=== PATIENT | female | born 1975 | race Caucasian/White ===

== ENCOUNTER 2016-09-14 18:36 | Emergency (ER) | payer OTHER ==
[~2016-09-14] VITALS: Ht 149.9 cm; Wt 70.0 kg
[~2016-09-14 18:36] MED LIST: HYDR-3533 PO; PERC5TAB12 PO; ZOVI800T13 PO
[2016-09-14 18:58] VITALS: BP 121/75; PULSE 86; RESP 20; TEMP 98.2; O2SAT 100
--- NOTE | 2016-09-14 19:37 | PD ---
HPI Chief Complaint: Skin Problem Time Seen by Provider: 19:37 Travel History International Travel<30 days: No Contact w/Intl Traveler<30days: No Traveled to known affect area: No History of Present Illness HPI 41-year-old female presents to the emergency Department with complaint of a rash to bilateral antecubital areas since . Reports rash is itchy. The rash started on her face and then started on her bilateral arms. She says it is now coming to her chest and to bilateral armpit areas. Denies airway edema, shortness of breath, wheezing, stridor. Denies new detergents, lotions, soaps, medications, foods, and environmental exposure. There is a cat, that is not hers, in her house and she has been petting it. She does not know she is allergic to cats. She has taken Benadryl with some relief of itching. Last took Benadryl last night. Has also used calamine lotion with no relief of itching. Denies fever, chills, nausea, vomiting. Denies chest pain, shortness of breath, abdominal pain. History of allergic asthma and eczema. Symptoms are not consistent with eczema per the patient. Allergies to aspirin, Imitrex, penicillin, vancomycin. No other modifying factors or associated signs and symptoms. PFSH Past Medical History Asthma: Yes Anxiety: Yes Depression: Yes Heart Rhythm Problems: Yes (HEART MURMUR) Cardiac Catheterization: No Cardiovascular Problems: Yes High Cholesterol: Yes Congestive Heart Failure: No Diabetes: Yes (BORDERLINE) Patient Takes Glucophage: No Diminished Hearing: No Neurologic: Yes (HYDROCEPHALUS) Reproductive: Yes (ENDOMETREOSIS) Migraines: Yes Triglycerides - High: Yes Tetanus Vaccination: > 5 Years Influenza Vaccination: Yes ?: Not LMP: YEAR AGO Menopausal: Yes : 1 Miscarriage: 1 Past Surgical History Appendectomy: Yes Cholecystectomy: Yes Coronary Artery Bypass Graft: No Eye Surgery: Yes (BILAT FOR ASTIGMATISM) Neurologic Surgery: Yes (SHUNT PLACEMENT FOR HYDROCEPHALOUS WITH MULT REVISIONS ) Other Surgery: Yes (SHUNT REVISION) Family History Family Myocardial Infarction: Yes Social History Alcohol Use: No Tobacco Use: No Substance Use: No Allergies-Medications (Allergen,Severity, Reaction): Coded Allergies: Aspirin (Verified Allergy, Severe, Throat closes, 09/14/16) Penicillin (Verified Allergy, Severe, Itching/rash, 09/14/16) Vancomycin (Verified Allergy, Severe, Throat swelling, 09/14/16) Imitrex (Verified Adverse Reaction, Severe, Heart races, 09/14/16) Reported Meds & Prescriptions Reported Meds & Active Scripts Active Deltasone (Prednisone) 20 Mg Tab 40 Mg PO DAILY 4 Days start 09/15/2016 Lortab 5 mg/325 mg (Hydrocodone/Acetaminophen 5 mg/325 mg) 1 Tab 1 Tab PO Q6H PRN Zovirax (Acyclovir) 800 Mg Tab 800 Mg PO 5 TIMES A DAY 7 Days Percocet 5-325 mg (Oxycodone/Acetaminophen) Oxycodone 5/325 Acetaminophen Tab 1 Tab PO Q4H Review of Systems Except as stated in HPI: all other systems reviewed are Neg Physical Exam Narrative GENERAL: Well-nourished, well-developed patient, in no acute distress; afebrile , nontoxic-appearing SKIN: Warm and dry. Area of erythemic maculopapular rash, with small vesicles to area, to bilateral antecubital areas; no rash noted to face, chest, armpit areas. Bilateral upper extremities are supple and non-tense with 2+ pedal pulses and sensory intact. HEAD: Atraumatic. Normocephalic. EYES: Pupils equal and round at 3 mm with brisk reaction. No scleral icterus. No injection or drainage. PERRLA. ENT: Mucosa pink and moist. No erythema or exudates. No uvular edema. No uvular , palatal, or tonsillar deviation. Airway patent. EARS: Bilateral pinnae and external canals appear within normal limits. Bilateral tympanic membranes without erythema, dullness or perforation. NECK: Trachea midline. No lymphadenopathy. CARDIOVASCULAR: Regular rate and rhythm. No murmur appreciated. RESPIRATORY: No accessory muscle use. Clear to auscultation. Breath sounds equal bilaterally. GASTROINTESTINAL: Abdomen soft, non-tender, nondistended. Hepatic and splenic margins not palpable. Bowel sounds are active 4 quadrants. MUSCULOSKELETAL: No obvious deformities. No clubbing. No cyanosis. No edema. NEUROLOGICAL: Awake and alert. Oriented 3. No obvious cranial nerve deficits. Motor grossly within normal limits. Normal speech. Moves all extremities. 5/5 strength to all extremities. PSYCHIATRIC: Appropriate mood and affect; insight and judgment normal. Data Data Last Documented VS Vital Signs Date Time Temp Pulse Resp B/P Pulse Ox O2 Delivery O2 Flow Rate FiO2 09/14/16 18:58 98.2 86 20 121/75 100 Orders Diphenhydramine (Benadryl) (09/14/16 19:45) Prednisone (Deltasone) (09/14/16 19:45) MDM Medical Decision Making Medical Screen Exam Complete: Yes Emergency Medical Condition: Yes Medical Record Reviewed: Yes Differential Diagnosis Contact dermatitis, nonspecific rash, allergic reaction, hives Narrative Course 41-year-old female physical exam consistent with a nonspecific skin eruption to bilateral antecubital areas. Rash is itchy. Denies new exposures, except possibly to a cat. Patient is in no acute distress and oxygen saturation is 100 % on room air. No retractions tachypnea. Denies shortness of breath, airway edema, difficulty breathing. Benadryl and Deltasone administered in the ER. Insert a patient to follow up with dermatology as needed. Deltasone Prescribed for Home. Instructed patient to take Benadryl as instructed next needed for itch/rash. Patient verbalized understanding and agreement of treatment plan. Patient is medically cleared and stable for discharge. Discussed reasons to return to the emergency department. Instructed patient to follow up with primary care provider. Patient agrees with treatment plan. The patients vital signs are stable and the patient is stable for outpatient follow-up and treatment. Patient discharged home, stable and in no acute distress. Diagnosis Primary Impression: Rash and nonspecific skin eruption Referrals: [facility] Primary Care Physician Patient Instructions: Acute Rash (ED), General Instructions Additional Instructions: Take prednisone as prescribed [id number] topicals to reduce itch Benadryl as directed and as needed to reduce itch Follow-up with your primary care provider Follow-up with dermatology as needed Return to the emergency department immediately Med/Other Pt SpecificInfo: Prescription(s) given Scripts Prednisone (Deltasone)20 Mg Tab40 Mg PO DAILY 4 Days Ref 0 start 09/15/2016 Prov:Merly Salmon 09/14/16 Disposition: 01 DISCHARGE HOME Condition: Stable Merly Salmon Sep 14, 2016 19:37
[2016-09-14] MEDS ORDERED: PRED-503 PO (19:41)
[2016-09-14] MEDS ORDERED: diphenhydrAMINE HCL 50 MG CAP PO ONE (19:45)
[2016-09-14] MEDS ORDERED: predniSONE 20 MG TAB PO ONE (19:45)
== END 2016-09-14 19:50 | disposition home or self-care (01) ==
LOC: PHEFT 18:36
DX: R21 Rash and other nonspecific skin eruption (principal)
CPT/HCPCS: 99282; J7512; Q0163

== ENCOUNTER 2017-01-12 20:18 | Emergency (ER) | payer OTHER ==
[~2017-01-12] VITALS: Ht 149.9 cm; Wt 69.0 kg
[~2017-01-12 20:18] MED LIST changes: +PRED-503 PO
[2017-01-12 20:24] VITALS: BP 132/72; PULSE 77; RESP 20; TEMP 98.2; O2SAT 100
[2017-01-12] MEDS ORDERED: SODIUM CHLOR 0.9% 1000 ML INJ 1,000 ML IV SCH (20:58)
[2017-01-12 21:00] VITALS: BP 154/74; PULSE 69; RESP 18; O2SAT 100
[2017-01-12] MEDS ORDERED: MORPHINE SULFATE 4 MG/ML INJ IV PUSH ONE (21:00)
[2017-01-12] MEDS ORDERED: SODIUM CHLORIDE 0.9% FLUSH 10 ML FLUSH IV FLUSH PRN (21:00)
[2017-01-12] MEDS ORDERED: ONDANSETRON HCL 4 MG/2 ML VIAL IVP ONE (21:00)
--- NOTE | 2017-01-12 21:20 | PD ---
HPI . Abdominal pain Chief Complaint: Abdominal Pain Time Seen by Provider: 20:53 Travel History International Travel<30 days: No Contact w/Intl Traveler<30days: No Traveled to known affect area: No History of Present Illness HPI Patient presents with a 3 day history of upper abdominal pain associated with nausea, vomiting and loose stools. She describes the pain as sharp, stabbing and burning. She states that her pain is 9/10. Pain is possibly exacerbated by food. She has actually continued to be quite vigorously. She has had sausage and eggs followed by santinoa today. She denies any fever. She denies any urinary tract symptoms. She denies any previous similar history. She states that she does not use alcohol. Past surgical history is significant for previous appendectomy and cholecystectomy. PFSH Past Medical History Asthma: Yes Anxiety: Yes Depression: Yes Heart Rhythm Problems: Yes (HEART MURMUR) Cardiac Catheterization: No Cardiovascular Problems: Yes High Cholesterol: Yes Congestive Heart Failure: No Diabetes: Yes (BORDERLINE) Patient Takes Glucophage: No Diminished Hearing: No Neurologic: Yes (HYDROCEPHALUS) Reproductive: Yes (ENDOMETREOSIS) Migraines: Yes Triglycerides - High: Yes Tetanus Vaccination: > 5 Years Influenza Vaccination: Yes ?: Unknown LMP: 2011 Menopausal: Yes : 1 Miscarriage: 1 Past Surgical History Appendectomy: Yes Cholecystectomy: Yes Coronary Artery Bypass Graft: No Eye Surgery: Yes (BILAT FOR ASTIGMATISM) Neurologic Surgery: Yes (SHUNT PLACEMENT FOR HYDROCEPHALOUS WITH MULT REVISIONS ) Other Surgery: Yes (SHUNT REVISION) Family History Family Myocardial Infarction: Yes Social History Alcohol Use: No Tobacco Use: No Substance Use: No Allergies-Medications (Allergen,Severity, Reaction): Coded Allergies: Aspirin (Verified Allergy, Severe, Throat closes, 01/12/17) Penicillin (Verified Allergy, Severe, Itching/rash, 01/12/17) Vancomycin (Verified Allergy, Severe, Throat swelling, 01/12/17) Imitrex (Verified Adverse Reaction, Severe, Heart races, 01/12/17) Reported Meds & Prescriptions Reported Meds & Active Scripts Active Phenergan (Promethazine HCl) 25 Mg Tab 25 Mg PO Q6H PRN Prilosec (Omeprazole) 20 Mg Cap 20 Mg PO DAILY Review of Systems Except as stated in HPI: all other systems reviewed are Neg General / Constitutional: No: Fever, Chills Gastrointestinal: Positive: Nausea, Vomiting, Diarrhea, Abdominal Pain Genitourinary: No: Urgency, Frequency, Dysuria Physical Exam Narrative GENERAL: Whining in apparent pain. SKIN: Warm and dry. HEAD: Atraumatic. Normocephalic. EYES: Pupils equal and round. Sclera are anicteric. ENT: No nasal bleeding or discharge. Mucous membranes pink and moist. NECK: Trachea midline. Neck is supple. CARDIOVASCULAR: Regular rate and rhythm. Heart sounds are normal. RESPIRATORY: No accessory muscle use. Lungs are clear with full air movement throughout. GASTROINTESTINAL: Abdomen soft. Upper abdominal tenderness. Nondistended. Bowel sounds positive. MUSCULOSKELETAL: No obvious deformities. No edema. NEUROLOGICAL: Awake and alert. No obvious cranial nerve deficits. Motor grossly within normal limits. Normal speech. PSYCHIATRIC: Appropriate mood and affect; insight and judgment normal. Data Data Last Documented VS Vital Signs Date Time Temp Pulse Resp B/P Pulse Ox O2 Delivery O2 Flow Rate FiO2 01/12/17 23:03 18 01/12/17 23:00 78 106/47 99 Room Air 01/12/17 20:24 98.2 Orders Complete Blood Count With Diff (01/12/17 20:58) Comprehensive Metabolic Panel (01/12/17 20:58) Lipase (01/12/17 20:58) Urinalysis - C+S If Indicated (01/12/17 20:58) Ct Abd/Pel W Iv Contrast(Rout) (01/12/17 20:58) Iv Access Insert/Monitor (01/12/17 20:58) Morphine Inj (Morphine Inj) (01/12/17 21:00) Ondansetron Inj (Zofran Inj) (01/12/17 21:00) Sodium Chlor 0.9% 1000 Ml Inj (Ns 1000 M (01/12/17 20:58) Sodium Chloride 0.9% Flush (Ns Flush) (01/12/17 21:00) Electrocardiogram (01/12/17 20:58) Ed Urine Pregnancytest Poc (01/12/17 20:58) Urine Culture (01/12/17 22:25) Iohexol 350 Inj (Omnipaque 350 Inj) (01/12/17 22:55) Labs Laboratory Tests Test 01/12/17 01/12/17 22:00 22:25 White Blood Count 14.6 TH/MM3 Red Blood Count 4.93 MIL/MM3 Hemoglobin 14.3 GM/DL Hematocrit 42.4 % Mean Corpuscular Volume 85.9 FL Mean Corpuscular Hemoglobin 29.0 PG Mean Corpuscular Hemoglobin 33.7 % Concent Red Cell Distribution Width 12.0 % Platelet Count 299 TH/MM3 Mean Platelet Volume 9.6 FL Neutrophils (%) (Auto) 84.6 % Lymphocytes (%) (Auto) 11.0 % Monocytes (%) (Auto) 2.9 % Eosinophils (%) (Auto) 0.8 % Basophils (%) (Auto) 0.7 % Neutrophils # (Auto) 12.4 TH/MM3 Lymphocytes # (Auto) 1.6 TH/MM3 Monocytes # (Auto) 0.4 TH/MM3 Eosinophils # (Auto) 0.1 TH/MM3 Basophils # (Auto) 0.1 TH/MM3 CBC Comment DIFF FINAL Differential Comment Sodium Level 138 MEQ/L Potassium Level 3.9 MEQ/L Chloride Level 106 MEQ/L Carbon Dioxide Level 23.2 MEQ/L Anion Gap 9 MEQ/L Blood Urea Nitrogen 15 MG/DL Creatinine 0.60 MG/DL Estimat Glomerular Filtration 110 ML/MIN Rate Random Glucose 116 MG/DL Calcium Level 9.0 MG/DL Total Bilirubin 0.6 MG/DL Aspartate Amino Transf 10 U/L (AST/SGOT) Alanine Aminotransferase 29 U/L (ALT/SGPT) Alkaline Phosphatase 132 U/L Total Protein 8.2 GM/DL Albumin 3.6 GM/DL Lipase 72 U/L Urine Collection Type Urine Color YELLOW Urine Turbidity CLEAR Urine pH 6.0 Urine Specific [place] 1.026 Urine Protein TRACE mg/dL Urine Glucose (UA) NEG mg/dL Urine Ketones NEG mg/dL Urine Occult Blood NEG Urine Nitrite NEG Urine Bilirubin NEG Urine Leukocyte Esterase NEG Urine RBC 0-3 /hpf Urine WBC 0-2 /hpf Urine Squamous Epithelial 6-8 /hpf Cells Urine Bacteria MOD /hpf Urine Mucus MOD /lpf Microscopic Urinalysis Comment CULTURE INDICATED MDM Medical Decision Making Medical Screen Exam Complete: Yes Emergency Medical Condition: Yes Interpretation(s) EKG shows a normal sinus rhythm with no acute ischemic change. Differential Diagnosis Differential diagnosis of abdominal pain includes but is not limited to gastritis, pancreatitis, hepatitis, gastroenteritis, gallbladder disease, constipation, urinary retention, UTI, peptic ulcer disease, diverticulitis or appendicitis Narrative Course Patient presents with a three-day history of upper abdominal pain as stated with occasional emesis and loose stools. She has continued to eat. CBC & BMP Diagram 01/12/17 22:00 LFTs are unremarkable. Lipase is 72. UA is negative for nitrites and leukocyte esterase. CT>> No evidence of acute abdominal or pelvic process. No masses are identified. No etiology for her abdominal pain and vomiting has been found. Diagnosis Primary Impression: Abdominal pain Qualified Code: R10.13 - Epigastric pain Additional Impression: Vomiting Qualified Code: R11.2 - Non-intractable vomiting with nausea, unspecified vomiting type Patient Instructions: Abdominal Pain (ED), Acute Nausea and Vomiting (DC), General Instructions, Narcotic given in the ED Med/Other Pt SpecificInfo: Prescription(s) given Scripts Promethazine (Phenergan)25 Mg Tab25 Mg PO Q6H PRN (Nausea/Vomiting) #10 TAB Ref 0 Prov:Kimberly Crocker MD 01/12/17 Omeprazole (Prilosec)20 Mg Cap20 Mg PO DAILY #30 CAP Ref 0 Prov:Kimberly Crocker MD 01/12/17 Disposition: 01 DISCHARGE HOME Condition: Stable Kimberly Crocker MD January 12, 2017 21:20
[2017-01-12 22:00] VITALS: BP 107/54; PULSE 74; RESP 18; O2SAT 98
[2017-01-12 22:09] LABS: AUTOMATED NEUTROPHIL # 12.4 TH/MM3 (1.8-7.7); BASOPHIL # 0.1 TH/MM3 (0-0.2); BASOPHIL % 0.7 % (0.0-2.0); EOSINOPHIL # 0.1 TH/MM3 (0-0.4); EOSINOPHIL % 0.8 % (0.0-4.0); HEMATOCRIT 42.4 % (35.0-46.0); LYMPHOCYTE # 1.6 TH/MM3 (1.0-4.8); MEAN CELL VOLUME 85.9 FL (80.0-100.0); MEAN CORPUSCULAR HGB CONC 33.7 % (32.0-36.0); MONO % 2.9 % (0.0-8.0); NEUT % 84.6 % (16.0-70.0); PLATELET COUNT 299 TH/MM3 (150-450); RED BLOOD COUNT 4.93 MIL/MM3 (4.00-5.30); WHITE BLOOD COUNT 14.6 TH/MM3 (4.0-11.0)
[2017-01-12 22:11] LABS: HEMO FLAGS DIFF FINAL
[2017-01-12 22:22] LABS: CHLORIDE 106 MEQ/L (98-107); POTASSIUM 3.9 MEQ/L (3.5-5.1); SODIUM (NA) 138 MEQ/L (136-145)
[2017-01-12 22:26] LABS: ANION GAP 9 MEQ/L (5-15); BICARBONATE 23.2 MEQ/L (21.0-32.0)
[2017-01-12 22:27] LABS: BLOOD UREA NITROGEN 15 MG/DL (7-18)
[2017-01-12 22:29] LABS: ALT (GPT) 29 U/L (10-53); AST (GOT) 10 U/L (15-37); GLOMERULAR FILTRATION RATE 110 ML/MIN (>89)
[2017-01-12 22:31] LABS: TOTAL BILIRUBIN ADULT 0.6 MG/DL (0.2-1.0)
[2017-01-12 22:32] LABS: ALKALINE PHOSPHATASE 132 U/L (45-117)
[2017-01-12 22:42] LABS: BLOOD, URINE NEG (NEG); GLUCOSE,URINE NEG (NEG); KETONE, URINE NEG (NEG); NITRITE,URINE NEG (NEG)
[2017-01-12 22:47] LABS: URINE COLOR YELLOW (YELLW/STRAW)
[2017-01-12 22:48] LABS: MUCUS URINE MOD /lpf (OCC)
[2017-01-12 22:51] LABS: BACTERIA, URINE MOD /hpf; WBC, URINE 0-2 /hpf (0-5)
[2017-01-12 22:52] LABS: COMMENT (UR) CULTURE INDICATED; CULTURE IF INDICATED CULTURE INDICATED; RBC, URINE 0-3 /hpf (0-3)
[2017-01-12] MEDS ORDERED: IOHEXOL 350 MG/ML 10 ML VIAL (for RAD DIAG) IV ONE (22:55)
[2017-01-12 23:00] VITALS: BP 106/47; PULSE 78; RESP 18; O2SAT 99
[2017-01-12 23:03] VITALS: RESP 18
[2017-01-12] MEDS ORDERED: PRIL20CA9 PO (23:30)
[2017-01-12] MEDS ORDERED: PROM25TA5 PO (23:30)
--- NOTE | 2017-01-13 00:07 | RADHPO ---
EXAM DATE/TIME: 01/12/2017 22:35 [facility] COMPARISON: No previous studies available for comparison. INDICATIONS : Epigastric pain. Nausea, vomiting and diarrhea. IV CONTRAST: 100 cc Omnipaque 350 (iohexol) IV ORAL CONTRAST: No oral contrast ingested. RADIATION DOSE: 9.5 CTDIvol (mGy) MEDICAL HISTORY : None SURGICAL HISTORY : Appendectomy. Cholecystectomy. ENCOUNTER: Initial ACUITY: 3 days PAIN SCALE: 8/10 LOCATION: Bilateral upper quadrant TECHNIQUE: Volumetric scanning of the abdomen and pelvis was performed. Using automated exposure control and ad justment of the mA and/or kV according to patient size, radiation dose was kept as low as reasonably achievable to obtain optimal diagnostic quality images. FINDINGS: Examination of the lung bases demonstrates no abnormality. No pleural fluid is identified. No pulmona ry nodules are present. The liver and spleen are normal in size and no focal defects are identified. The gallbladder is absent. The pancreas demonstrates normal contour without evidence of mass or ducta l dilatation. The adrenal glands and kidneys appear normal bilaterally. No hydronephrosis or mass les ions are identified. There is a single simple cyst in the left kidney measuring 15 mm in the midpole . A shunt catheter is entering the right upper quadrant with a small amount of free fluid in the abdo men. Examination of the pelvis demonstrates no evidence of free fluid or pelvic mass. No abnormally enlarg ed inguinal or retroperitoneal lymph nodes are present. The bladder is unremarkable. CONCLUSION: 1. No evidence of acute abdominal or pelvic process. No masses are identified. Darius Ocampo MD on January 13, 2017 at 0:03 Board Certified Radiologist. This report was verified electronically.
[2017-01-13 00:29] VITALS: BP 106/54
--- NOTE | 2017-01-13 08:38 | EKG ---
Date Performed: 01/12/2017 Time Performed: 22:12:54 PTAGE: 41 years EKG: Sinus rhythm Poor R wave progression - probable normal variant Borderline ECG PREVIOUS TRACING : 03/31/2014 18.15 DOCTOR: Nilton Noyola Interpretating Date/Time 01/13/2017 08:37:41
== END 2017-01-13 00:34 | disposition home or self-care (01) ==
LOC: PHED 20:18
DX: R10.13 Epigastric pain (principal); R11.2 Nausea with vomiting, unspecified; J45.909 Unspecified asthma, uncomplicated; F41.8 Other specified anxiety disorders; E78.2 Mixed hyperlipidemia; Z90.49 Acquired absence of other specified parts of digestive tract
CPT/HCPCS: 74177; 80053; 81001; 83690; 84703; 85025; 87086; 93005; 96361; 96374; 96375; 99284; J2270; J2405; J7030; Q9967

== ENCOUNTER 2017-05-07 07:31 | Emergency (ER) | payer OTHER ==
[~2017-05-07] VITALS: Ht 154.9 cm; Wt 65.0 kg
[~2017-05-07 07:31] MED LIST changes: -HYDR-3533 PO; -PERC5TAB12 PO; -PRED-503 PO; +PRIL20CA9 PO; +PROM25TA5 PO; -ZOVI800T13 PO
[2017-05-07 07:34] VITALS: BP 119/60; PULSE 74; RESP 20; TEMP 97.2; O2SAT 98
--- NOTE | 2017-05-07 07:41 | PD ---
HPI . Left eyelid swelling and drainage for 1 day Chief Complaint: Eye Problems/Injury Time Seen by Provider: 07:40 Travel History International Travel<30 days: No Contact w/Intl Traveler<30days: No Traveled to known affect area: No History of Present Illness HPI 41-year-old female here with complaints of left eyelid swelling and drainage for 1 day. Patient says that it all of a sudden started out of the blue. She recently worked her shift last night and is here for evaluation. She denies any visual changes. PFSH Past Medical History Asthma: Yes Anxiety: Yes Depression: Yes Heart Rhythm Problems: Yes (HEART MURMUR) Cardiac Catheterization: No Cardiovascular Problems: Yes High Cholesterol: Yes Congestive Heart Failure: No Diabetes: Yes (BORDERLINE) Diminished Hearing: No Neurologic: Yes (HYDROCEPHALUS) Reproductive: Yes (ENDOMETREOSIS) Migraines: Yes Triglycerides - High: Yes ?: Not Menopausal: Yes : 1 Miscarriage: 1 Past Surgical History Appendectomy: Yes Cholecystectomy: Yes Coronary Artery Bypass Graft: No Eye Surgery: Yes (BILAT FOR ASTIGMATISM) Neurologic Surgery: Yes (SHUNT PLACEMENT FOR HYDROCEPHALOUS WITH MULT REVISIONS ) Other Surgery: Yes (SHUNT REVISION) Social History Alcohol Use: No Tobacco Use: No Substance Use: No Allergies-Medications (Allergen,Severity, Reaction): Coded Allergies: aspirin (Unverified Allergy, Severe, Throat closes, 04/27/17) penicillin G (Unverified Allergy, Severe, Itching/rash, 04/27/17) vancomycin (Unverified Allergy, Severe, Throat swelling, 04/27/17) sumatriptan (Unverified Adverse Reaction, Severe, Heart races, 04/27/17) Reported Meds & Prescriptions Reported Meds & Active Scripts Active Erythromycin Opth Oint 5 Mg/Gm Oint 1 Applic LEFT EYE BID 5 Days Phenergan (Promethazine HCl) 25 Mg Tab 25 Mg PO Q6H PRN Prilosec (Omeprazole) 20 Mg Cap 20 Mg PO DAILY Review of Systems General / Constitutional: No: Fever Eyes: Positive: Drainage, Other (eyelid swelling), No: Visual changes HENT: No: Headaches Cardiovascular: No: Chest Pain or Discomfort Respiratory: No: Shortness of Breath Gastrointestinal: No: Abdominal Pain Genitourinary: No: Dysuria Musculoskeletal: No: Pain Skin: No Rash Neurologic: No: Weakness Psychiatric: No: Depression Endocrine: No: Polydipsia Hematologic/Lymphatic: No: Easy Bruising Physical Exam Narrative GENERAL: AAO x 3, no acute distress, Well-nourished, well-developed patient. SKIN: Warm and dry. No visible rashes or bruising. HEAD: Normocephalic and atraumatic. EYES: No scleral icterus. EOM intact, PERRLA, injection on the left eye with some mild upper eyelid swelling. There is mild erythema limited only to the eyelid. Dried purulent matter on the medial aspect of eye ENT: No nasal drainage noted. Mucous membranes pink. Airway patent. NECK: Supple, trachea midline. No JVD. CARDIOVASCULAR: Regular rate and rhythm without murmurs, gallops, or rubs. RESPIRATORY: Breath sounds equal bilaterally. No accessory muscle use. No rhonchi or rales. GASTROINTESTINAL: Visual inspection normal EXTREMITIES: No cyanosis or edema. BACK: No obvious deformity NEURO: Grossly intact Data Data Last Documented VS Vital Signs Date Time Temp Pulse Resp B/P (MAP) Pulse Ox O2 Delivery O2 Flow Rate FiO2 05/07/17 07:34 97.2 74 20 119/60 (79) 98 MDM Medical Decision Making Medical Screen Exam Complete: Yes Emergency Medical Condition: Yes Medical Record Reviewed: Yes Differential Diagnosis Blepharitis, conjunctivitis, less likely preseptal cellulitis Narrative Course 41-year-old female here with what appears to be a bacterial conjunctivitis along with some blepharitis. This does not appear to be a preseptal cellulitis. I've advised her to try erythromycin ophthalmic ointment. She does not have an allergy to this and tells me that she is taking it in the past. I recommend follow-up with ophthalmology if symptoms persist. Patient verbalized understanding of instructions, questions were answered, and thanked me for their care. I advised them if their condition worsens, please return to the nearest emergency room for further care. Diagnosis Primary Impression: Blepharitis of eyelid of left eye Qualified Codes: H01.004 - Unspecified blepharitis left upper eyelid Additional Impression: Bacterial conjunctivitis of left eye Patient Instructions: General Instructions Additional Instructions: Clean crust from eyelids daily with clean cloth moistened with warm water. May use 1 drop of baby shampoo on the cloth to aid in cleansing. Please return to emergency department if your symptoms return or worsen. Follow up with your primary care provider. Take medications as prescribed. Follow-up with an visual merchandising assistant. Med/Other Pt SpecificInfo: Prescription(s) given Scripts Erythromycin Opth Oint (Erythromycin Opth Oint) 5 Mg/Gm Oint 1 APPLIC LEFT EYE BID for Infection for 5 Days, #1 TUBE 0 Refills Prov: Adair Nick MD 05/07/17 Disposition: 01 DISCHARGE HOME Condition: Stable Hermelinda Madera May 07, 2017 07:41
[2017-05-07] MEDS ORDERED: ERYTOIN10 LEFT EYE (07:49)
== END 2017-05-07 08:07 | disposition home or self-care (01) ==
LOC: NEPK 07:31
DX: H01.004 Unspecified blepharitis left upper eyelid (principal); H10.89 Other conjunctivitis; J45.909 Unspecified asthma, uncomplicated; F41.9 Anxiety disorder, unspecified; F32.9 Major depressive disorder, single episode, unspecified; R73.03 Prediabetes; E78.1 Pure hyperglyceridemia; Z79.899 Other long term (current) drug therapy; Z88.0 Allergy status to penicillin
CPT/HCPCS: 99283